=== PATIENT | male | born 1950 | race Caucasian/White ===

== ENCOUNTER 2017-09-22 11:30 | Inpatient (IN) | payer OTHER, MEDICARE ==
[~2017-09-22] VITALS: Ht 182.9 cm; Wt 88.4 kg
[2017-09-22] VITALS (22 sets, daily range): BP systolic 95–125; BP diastolic 53–76; PULSE 70–100; RESP 15–87; Ht 182.9 cm; Wt 88.4 kg
[~2017-09-22 11:30] MED LIST: ONDANSETRON 4 MG INJ ONE
[2017-09-22] MEDS ORDERED: FINA5TAB4 PO (11:54)
[2017-09-22] MEDS ORDERED: CRES10 PO (11:55)
[2017-09-22] MEDS ORDERED: ALFU10TA28 PO (11:55)
[2017-09-22] MEDS ORDERED: METO-448 PO (11:56)
[2017-09-22] MEDS ORDERED: DULO60CA59 PO (11:57)
[2017-09-22] MEDS ORDERED: LOSA1TAB25 PO (11:57)
[2017-09-22] MEDS ORDERED: CELE200C PO (11:57)
[2017-09-22] MEDS ORDERED: METF1000 PO (11:58)
[2017-09-22] MEDS ORDERED: ZOLP10TA PO (11:58)
[2017-09-22] MEDS ORDERED: HYDR-902 PO (11:59)
[2017-09-22] MEDS ORDERED: VANCOMYCIN 1 GM (PMX) 250 ML IVPB SCH ×2 (12:30→13:30)
[2017-09-22] MEDS ORDERED: LACTATED RINGER'S 1,000 ML IV* SCH (12:30)
[2017-09-22] MEDS ORDERED: 1/2 NS + KCL 20 MEQ 1,000 ML IV SCH (13:22)
--- NOTE | 2017-09-22 13:22 | HPN ---
Date/Time of Note Date/Time of Note DATE: 09/22/17 TIME: 13:22 Interval H&P Admission Note Pt. seen H&P reviewed: No system changes SIMRAN PARK PA-C Sep 22, 2017 13:22
[2017-09-22] MEDS ORDERED: AL HYDROX/MG HYDROX/SIMETH 30 ML CUP PO PRN (13:30)
[2017-09-22] MEDS ORDERED: CEPASTAT LOZENGE MT PRN (13:30)
[2017-09-22] MEDS ORDERED: BISACODYL 10 MG SUPP PR PRN (13:30)
[2017-09-22] MEDS ORDERED: HYDROmorphONE 0.5 MG/0.5 ML SYG IV PRN (13:30)
[2017-09-22] MEDS ORDERED: CYCLOBENZAPRINE 10 MG TAB PO PRN (13:30)
[2017-09-22] MEDS ORDERED: ONDANSETRON 4 MG INJ IV PRN ×2 (13:30→14:00)
[2017-09-22] MEDS ORDERED: NALOXONE (0.4 MG/ML) INJ IV PRN (13:30)
[2017-09-22] MEDS ORDERED: ZOLPIDEM 5 MG TAB PO PRN (13:30)
[2017-09-22] MEDS ORDERED: HYDROCODONE/APAP (10/325) TAB PO PRN (13:30)
[2017-09-22] MEDS ORDERED: ACETAMINOPHEN 325 MG TAB PO PRN (13:30)
[2017-09-22] MEDS ORDERED: DIPHENHYDRAMINE 50 MG INJ IV PRN ×2 (13:30→14:00)
[2017-09-22] MEDS ORDERED: ROCURONIUM 50 MG INJ ONE (13:49)
[2017-09-22] MEDS ORDERED: PROPOFOL 20 ML ONE (13:49)
[2017-09-22] MEDS ORDERED: LIDOCAINE 2% (SDV) 5 ML INJ ONE (13:49)
[2017-09-22] MEDS ORDERED: THROMBIN 5000 UNIT VIAL ONE (13:50)
[2017-09-22] MEDS ORDERED: SURGIFOAM POWDER 1 GM KIT ONE (13:50)
[2017-09-22] MEDS ORDERED: CEFAZOLIN 1 GM INJ ONE (13:50)
[2017-09-22] MEDS ORDERED: CA CHLORIDE 10% 10 ML SYRINGE ONE (13:51)
[2017-09-22] MEDS ORDERED: HEPARIN 1000 UNITS/ML 10 ML INJ ONE (13:51)
[2017-09-22] MEDS ORDERED: BUPIVACAINE 0.25% (MPF) 30 ML INJ ONE (13:51)
[2017-09-22] MEDS ORDERED: BUPIVACAINE 0.25%/EPI (SDV) 30 ML INJ ONE (13:51)
[2017-09-22] MEDS ORDERED: FENTAnyl 50 MCG/ML VIAL ONE ×2 (13:51→17:56)
[2017-09-22] MEDS ORDERED: hydrALAzine 20 MG INJ IV PRN (14:00)
[2017-09-22] MEDS ORDERED: HYDROmorphONE (0.2 MG/ML) 10ML SYG IV PRN ×3 (14:00)
[2017-09-22] MEDS ORDERED: EPHEDrine SULFATE 50 MG/5 ML SYG IV PRN (14:00)
[2017-09-22] MEDS ORDERED: KETOROLAC 30 MG INJ IV PRN (14:00)
[2017-09-22] MEDS ORDERED: LABETALOL HCL 20MG INJ IV PRN (14:00)
[2017-09-22] MEDS ORDERED: ALBUTEROL 0.083% (NEB) 2.5 MG/3 ML AMP HHN PRN (14:00)
[2017-09-22] MEDS ORDERED: FENTAnyl 50 MCG/ML VIAL IV PRN ×3 (14:00)
[2017-09-22] MEDS ORDERED: MEPERIDINE 25 MG INJ IV PRN (14:00)
[2017-09-22] MEDS ORDERED: METOCLOPRAMIDE 10 MG INJ IV PRN (14:00)
[2017-09-22] MEDS ORDERED: OXYCODONE/ACETAMINOPHEN (5/325) TAB PO PRN ×2 (14:00)
[2017-09-22] MEDS ORDERED: morphine 10 MG INJ ONE (14:32)
[2017-09-22] MEDS ORDERED: DEXAMETHASONE 4 MG/ML 1 ML INJ ONE (16:03)
[2017-09-22] MEDS ORDERED: KETOROLAC 30 MG INJ ONE (18:26)
--- NOTE | 2017-09-22 18:37 | SIPON ---
Date/Time of Note Date/Time of Note DATE: 09/22/17 TIME: 18:37 Operative Report Preoperative Diagnosis L4-5 disc disease and stenosis Postoperative Diagnosis L4-5 disc disease and stenosis Operation/Procedure Performed L4-5 fusion Surgeon see signature line fire control assistant Nithya VALE Anesthesia: general Estimated blood loss: 250 - 300 ml's Transfusion Required none Specimen Disc Grafts/Implants Screws and cage Complications none MIKE MONROE MD Sep 22, 2017 18:37
[2017-09-22] MEDS: HYDROmorphONE 0.2 MG/ML PCA IV SCH (18:49)
--- NOTE | 2017-09-22 19:57 | OPR ---
DATE OF OPERATION: 09/22/2017 PREOPERATIVE DIAGNOSES: Degenerative scoliosis with L4-L5 disk disease and stenosis and radiculopat hy. POSTOPERATIVE DIAGNOSIS: Degenerative scoliosis with L4-L5 disk disease and stenosis and radiculopa thy. OPERATION PERFORMED: 1. Bilateral pedicle screw placement at L4 and L5 bilaterally. 2. Transforaminal lumbar interbody fusion at L4-L5. 3. Placement of intervertebral biomechanical device at L4-L5. 4. Posterolateral fusion at L4-L5. 5. Left L4 extraforaminal decompression. 6. Iliac crest bone marrow aspiration. 7. Use of allograft. 8. Use of autograft. 9. Use of C-arm fluoroscopy with interpretation without radiologist present. 10. Use of operative microscope. 11. Intraoperative neuromonitoring (3.5 hours). 12. Epidural injection via catheter. IMPLANTS: 1. Gabriel 6.5 x 50 mm screws at L4 and 6.5 x 45 mm screws at L5 bilaterally. 2. [place] Nicole 11 mm lordotic cage. 3. Fibergraft matrix and putty. SURGEON: Corby Shin MD. GAS DISPENSER: Nithya Ramires PA-C. NEED FOR FLOUR BLENDER: During this spinal surgical procedure, my retail administrative assistant was used to retrac t and protect the spinal nerves and dural sac. My retail administrative assistant also employed the suction catheters to evacuate blood from the surgical field to improve visualization of the neural structures. The lokesh tant was medically necessary to facilitate the completion of the surgery in a safe and expeditious felicita. State of [place] regulations, as well as hospital bylaws, preclude the use of non-license d health care personnel, such as operating room technicians, to perform these functions. FINDINGS: Neuromonitoring at the start of the case revealed left L4 amplitude down 30%, left L5 amp litude down 30%. At the end of the case, nerve signals returned to normal. Patient had degenerativ e scoliosis with significant left-sided disk collapse at L4-L5 with foraminal stenosis. ESTIMATED BLOOD LOSS: 300 mL with blood return via Cell Saver. DRAINS: One. SPECIMENS: L4-5 disk. COMPLICATIONS OF PROCEDURES: None. ANESTHESIOLOGIST: Dr. Grubbs. TYPE OF ANESTHESIA: General. INDICATIONS FOR PROCEDURE: This 67-year-old gentleman has left lumbosacral radiculopathy and weakne ss in the setting of degenerative scoliosis and stenosis. He failed nonoperative measures, therefor e, I recommended proceeding with the above-mentioned surgery. Preoperatively, we discussed the risk s, benefits, and alternatives. He understood and wished to proceed. DESCRIPTION OF PROCEDURE IN DETAIL: The patient was identified in the preoperative holding area, anastacio quezada, taken to the operating room, where he was successfully placed under general an esthesia. Neuromonitoring leads were placed, sequential compressive devices were applied. Orozco ca theter was introduced. Neuromonitoring was utilized during the procedure for 3.5 hours to include S SEP, EMG and MEP. The start time was 3:00 p.m., closure time was 6:30 p.m. The patient was placed in downward turned prone position over a Adolfo frame. All bony prominences were well padded. Prep ped and draped in the usual fashion. I injected the incision sites with Marcaine and epinephrine. Incision was made over the L4-L5 level. Incision was taken down to dorsal fascia, which was incised with Bovie cautery. Due to the degenerative scoliosis and deformity with the overgrowth of the fac ets, there are no clear landmarks for the facet joints, particularly on the left side, worse at the L5 pedicle. As such, it took an extra hour in order for skeletonization of the bony elements and pl acement of the screws. Once I had exposed the spine out to the transverse processes, I took imaging studies to confirm the correct levels. I next performed a left iliac crest bone marrow aspiration. I then placed pedicle screws bilaterally at L4 and L5. Once the screws were in place, I stimulate d the screws and there was no evidence of cortical breach. These were modular screws and the heads were put on. Next, microscope was brought in and a left-sided decompression was performed at the L4 -5 level. The patient also had extraforaminal stenosis and therefore an extraforaminal decompressio n was performed on the left at L4 in addition to the L5 decompression. This was done in order to al leviate the stenosis. Once the decompression was completed, my retail administrative assistant retracted neural elements medially. A thorough radical diskectomy was performed. Endplates were prepared. Once this was don e, I placed various trials and chose the appropriate graft height. I then took the PEEK Nicole cage, which I deployed into the disk space to complete the transforaminal lumbar interbody fusion. Once I placed the intervertebral biomechanical device, I backfilled the cage with the allograft. Once thi s was done, I was happy with placement of the hardware. I irrigated the wound. I then placed the a ppropriate rods bilaterally with compression across the set screws with final tightening of the set screws. I then removed the director athletic tabs. I then irrigated the wound. I prepared the posterolater al gutter on the right side as well as the lamina on the right side and performed a posterolateral f usion at L4-5, utilizing the allograft and the autograft from the local lamina. At this point, I to ok final AP and lateral images and I was happy with placement of the hardware and alignment of the s pine. Through the epidural catheter, I injected 100 mcg of fentanyl mixed with 2 mL of Marcaine 0.2 5% preservative-free, and the catheter was pulled. I injected PPP and thrombin over the dura for he mostatic purposes. I then placed a deep subfascial drain and closed the fascia with #1 Stratafix conte ture. Microscope was taken off the field. I closed subcutaneous tissue with 2-0 Vicryl stitch. A 4-0 Monocryl closure was then performed. Dermabond and sterile dressings were then applied. The pa tient was then awakened from anesthesia and taken to recovery in stable condition. Lap, sponge, and instrument counts were correct x2. There were no apparent complications during the procedure. The patient will be admitted to the [facility] for routine postoperative care to include pain c ontrol, neurovascular checks, antibiotics, and physical therapy. Dictated By: CORBY ROTH/LORENZO Conf#: [id number] DID#: [id number]
[2017-09-22] MEDS: DOCUSATE SODIUM 100 MG CAP PO SCH (20:46)
[2017-09-22] MEDS: VANCOMYCIN 1 GM (PMX) 250 ML IVPB SCH (20:46)
[2017-09-22] MEDS ORDERED: GLUCOSE GEL 15 GRAM TUBE PO PRN ×2 (22:30)
[2017-09-22] MEDS ORDERED: DEXTROSE 50% 50 ML SYRINGE IV PRN ×2 (22:30)
[2017-09-22] MEDS ORDERED: GLUCAGON 1 MG INJ IM PRN (22:30)
[2017-09-22] MEDS ORDERED: GLUCOSE GEL 15 GRAM TUBE BUCCAL PRN (22:30)
[2017-09-22] MEDS: SOD CHLORIDE 0.9% 1,000 ML IV SCH (23:00)
[2017-09-22] MEDS: METOPROLOL 25 MG TAB PO SCH (23:00)
[2017-09-22] MEDS: ALFUZOSIN (SR) 10 MG TAB PO SCH (23:30)
[2017-09-22] MEDS: ATORVASTATIN 40 MG TAB PO SCH (23:52)
[2017-09-23 00:01] VITALS: BP 102/57; PULSE 95; RESP 18
[2017-09-23] MEDS: ACCU-CHEK XX SCH (02:00)
[2017-09-23 02:09] VITALS: BP 116/61; RESP 18
[2017-09-23] MEDS: HYDROmorphONE 0.2 MG/ML PCA IV SCH ×3 (04:36→19:52)
[2017-09-23 05:31] LABS: BASOPHILS % 0.2 % (0.0-2.0); HEMATOCRIT 26.7 % (42.0-52.0); HEMOGLOBIN 9.1 g/dl (14.0-18.0); LYMPHOCYTES # 1.3 10^3/ul (0.8-2.9); LYMPHOCYTES % 19.2 % (15.0-51.0); MEAN CORPUSCULAR HEMOGLOBIN 31.2 pg (29.0-33.0); MEAN CORPUSCULAR HGB CONC 34.1 g/dl (32.0-37.0); MEAN CORPUSCULAR VOLUME 91.4 fl (82.0-101.0); MEAN PLATELET VOLUME 9.5 fl (7.4-10.4); MONOCYTE # 0.6 10^3/ul (0.3-0.9); MONOCYTES % 8.4 % (0.0-11.0); NEUTROPHIL # 4.7 10^3/ul (1.6-7.5); NEUTROPHILS % 71.7 % (39.0-77.0); PLATELET COUNT 163 10^3/UL (140-415); RED BLOOD COUNT 2.92 10^6/ul (4.70-6.10); RED CELL DISTRIBUTION WIDTH 12.5 % (11.5-14.5); WHITE BLOOD COUNT 6.6 10^3/ul (4.8-10.8)
[2017-09-23 06:31] LABS: CALCIUM 8.2 mg/dl (8.4-10.2); CREATININE 0.69 mg/dl (0.61-1.24); MAGNESIUM 1.4 mg/dl (1.7-2.5); POTASSIUM 4.5 mmol/L (3.5-5.1)
[2017-09-23 07:31] VITALS: BP 111/70; RESP 20
[2017-09-23 07:36] VITALS: BP 139/63; RESP 20
[2017-09-23] MEDS ORDERED: MAGNESIUM SULFATE 3 GM in DEXTROSE 5% 100 ML IVPB ONE (08:00)
--- NOTE | 2017-09-23 08:32 | CONS ---
DATE OF ADMISSION: 09/22/2017 DATE OF CONSULTATION: 09/23/2017 Thank you very much for allowing me to evaluate the above patient who just underwent lumbar back aly allan yesterday. HISTORICAL EVENTS: As you well know, this patient has had a longstanding history of low back pain a nd radicular left leg pain with weakness involving the same. Because of persistence of his symptoms , he elected to proceed with surgery. Postoperatively, he notes no back pain and the numbness invol ving his left leg is markedly improved. He denies cough, wheezing, shortness of breath, nausea, vom iting, abdominal or chest pain. PAST MEDICAL HISTORY: Includes: 1. Hypertension. 2. Hyperlipidemia. 3. History of kidney stone. 4. History of vertebral compression fracture. 5. Diabetes mellitus. 6. Prior history of hepatitis C. 7. Undergoing cardiac evaluation preoperatively -- myocardial a nuclear study in 08/21/2017 year re vealed no ischemia. MEDICATIONS PRIOR TO ADMISSION: Include: (Not well outlined in internal medicine preoperative evaluation, doses to be confirmed). 1. Losartan. 2. Hydrochlorothiazide. 3. Crestor. 4. Finasteride. 5. Duloxetine. 6. Metoprolol. 7. Alfuzosin. 8. Vicodin. 9. Ambien. 10. Vitamins. 11. Metformin ALLERGIES: PENICILLIN. PAST SURGICAL HISTORY: Include: 1. Right knee replacement. 2. Right knee cyst removal. 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 PHYSICAL EXAMINATION: GENERAL: [place] male in no acute distress. VITAL SIGNS: BP 128/80, pulse 70, respirations are 20, and he was afebrile. EYES: Extraocular muscles were full. NOSE, MOUTH, AND THROAT: Normal. NECK: Supple. There was no jugular venous distention, thyroid enlargement or adenopathy. LUNGS: Clear. HEART: Rhythm regular, no murmur. No third or fourth sound. ABDOMEN: Nontender. Liver and spleen were not palpable. No masses or tenderness were noted. EXTREMITIES: No edema, no calf tenderness. NEUROLOGIC: Included hip flexion bilaterally that was normal, dorsiflexion of his feet that were no rmal bilaterally. IMPRESSION: 1. Stable postop lumbar laminectomy. 2. History of diabetes. We will monitor sugars and give short-acting insulin prior to meals. 3. Hypertension. Blood pressure meds was continued, but will delete hydrochlorothiazide. 4. Hyperlipidemia to continue statin. 5. We will evaluate daily for signs and symptoms of thromboembolic disease. Dictated By: CHRISTO WARNER MD MR/NTS Conf#: [id number] DID#: [id number] CC: MIKE MONROE MD;*EndCC*
--- NOTE | 2017-09-23 08:50 | RADRPT ---
PROCEDURE: Intraoperative imaging of the lower lumbar spine with fluoroscopy. CLINICAL INDICATION: Back pain. Intraoperative. TECHNIQUE: Images of the lower lumbar spine were obtained in the operating room with an image inte nsifier. No radiologist was in attendance. Fluoroscopy time is 87 seconds and 17 images were obtai olga. COMPARISON: No prior study is available for comparison. FINDINGS: Images demonstrate fusion with pedicle screws and connecting rods at L4-5. An intervertebral cage is also present at L4-5. IMPRESSION: 1. Intraoperative imaging of the lumbar spine. RPTAT: QQ .Adolfo Pleitez MD, MD Date Time Electronically viewed and signed by .Adolfo Pleitez MD, on 09/23/2017 08:50 .R/
[2017-09-23] MEDS: DOCUSATE SODIUM 100 MG CAP PO SCH ×2 (09:12→20:58)
[2017-09-23] MEDS: FINASTERIDE 5 MG TAB PO SCH (09:12)
[2017-09-23] MEDS: metFORMIN 500 MG TAB PO SCH ×2 (09:13→17:10)
[2017-09-23] MEDS: DULOXETINE 30 MG CAP DR PO SCH (09:14)
[2017-09-23] MEDS: VANCOMYCIN 1 GM (PMX) 250 ML IVPB SCH (09:15)
[2017-09-23] MEDS: INSULIN ASPART [NOVOLOG] 3 ML PEN SC SCH ×3 (09:15→17:11)
[2017-09-23] MEDS: LOSARTAN 50 MG TAB PO SCH (09:39)
[2017-09-23] MEDS: METOPROLOL 25 MG TAB PO SCH ×2 (09:40→21:00)
[2017-09-23] MEDS: SOD CHLORIDE 0.9% 1,000 ML IV SCH ×4 (09:41→23:31)
--- NOTE | 2017-09-23 12:07 | PN ---
Date/Time of Note Date/Time of Note DATE: 09/23/17 TIME: 12:06 Assessment/Plan Lines/Catheters IV Catheter Type (from Nrsg): Peripheral IV Orozco in Place (from Nrsg): Yes Assessment/Plan Assessment/Plan Status post lumbar surgery fusion. Patient is doing very well. Continue routine care Subjective 24 Hr Interval Summary Patient's left leg is significantly improved. Exam/Review of Systems Vital Signs Vitals Vital Signs Date Time Temp Pulse Resp B/P Pulse Ox O2 Delivery O2 Flow Rate FiO2 09/23/17 07:36 98.7 88 20 139/63 97 09/23/17 00:01 Room Air Intake and Output 09/22/17 09/22/17 09/23/17 15:00 23:00 07:00 Intake Total 2575 ml 1000 ml Output Total 850 ml 1940 ml Balance 1725 ml -940 ml Exam Free Text/Dictation Minimal left leg weakness, improved from preop Results Result Diagram: 09/23/17 0438 09/23/17 0438 MIKE MONROE MD Sep 23, 2017 12:07
[2017-09-23 13:47] LABS: BASOPHILS % 0.2 % (0.0-2.0); EOSINOPHILS % 0.4 % (0.0-7.0); HEMATOCRIT 26.7 % (42.0-52.0); HEMOGLOBIN 9.3 g/dl (14.0-18.0); LYMPHOCYTES # 2.8 10^3/ul (0.8-2.9); LYMPHOCYTES % 28.2 % (15.0-51.0); MEAN CORPUSCULAR HEMOGLOBIN 31.4 pg (29.0-33.0); MEAN CORPUSCULAR HGB CONC 34.8 g/dl (32.0-37.0); MEAN CORPUSCULAR VOLUME 90.2 fl (82.0-101.0); MEAN PLATELET VOLUME 9.1 fl (7.4-10.4); MONOCYTE # 0.8 10^3/ul (0.3-0.9); MONOCYTES % 7.7 % (0.0-11.0); NEUTROPHIL # 6.3 10^3/ul (1.6-7.5); PLATELET COUNT 162 10^3/UL (140-415); RED BLOOD COUNT 2.96 10^6/ul (4.70-6.10); RED CELL DISTRIBUTION WIDTH 12.6 % (11.5-14.5)
[2017-09-23 14:20] VITALS: BP 104/63; RESP 20
[2017-09-23 20:16] VITALS: BP 118/70; RESP 20
[2017-09-23] MEDS: ALFUZOSIN (SR) 10 MG TAB PO SCH (20:58)
[2017-09-23] MEDS: ATORVASTATIN 40 MG TAB PO SCH (20:58)
[2017-09-24 02:00] VITALS: BP 112/64; RESP 19
[2017-09-24] MEDS: ACCU-CHEK XX SCH (02:00)
[2017-09-24 05:20] LABS: BASOPHILS % 0.3 % (0.0-2.0); EOSINOPHILS # 0.1 10^3/ul (0.0-0.5); EOSINOPHILS % 2.3 % (0.0-7.0); HEMATOCRIT 26.5 % (42.0-52.0); HEMOGLOBIN 9.1 g/dl (14.0-18.0); LYMPHOCYTES # 2.1 10^3/ul (0.8-2.9); LYMPHOCYTES % 34.3 % (15.0-51.0); MEAN CORPUSCULAR HEMOGLOBIN 31.5 pg (29.0-33.0); MEAN CORPUSCULAR HGB CONC 34.3 g/dl (32.0-37.0); MEAN CORPUSCULAR VOLUME 91.7 fl (82.0-101.0); MEAN PLATELET VOLUME 9.1 fl (7.4-10.4); MONOCYTE # 0.5 10^3/ul (0.3-0.9); MONOCYTES % 8.1 % (0.0-11.0); NEUTROPHIL # 3.4 10^3/ul (1.6-7.5); NEUTROPHILS % 54.5 % (39.0-77.0); PLATELET COUNT 150 10^3/UL (140-415); RED BLOOD COUNT 2.89 10^6/ul (4.70-6.10); RED CELL DISTRIBUTION WIDTH 12.4 % (11.5-14.5); WHITE BLOOD COUNT 6.2 10^3/ul (4.8-10.8)
[2017-09-24 05:53] LABS: IRON 17 ug/dl (35-150)
[2017-09-24 05:55] LABS: CALCIUM 8.3 mg/dl (8.4-10.2); CREATININE 0.73 mg/dl (0.61-1.24); MAGNESIUM 1.7 mg/dl (1.7-2.5); POTASSIUM 4.5 mmol/L (3.5-5.1)
[2017-09-24 06:03] LABS: TOTAL IRON BINDING CAPACITY 280 ug/dl (241-421)
--- NOTE | 2017-09-24 07:37 | CONS ---
Date/Time of Note Date/Time of Note DATE: 09/24/17 TIME: 07:34 Assessment/Plan Assessment/Plan Additional Assessment/Plan 1. Stable postop lumbar laminectomy. 2. History of diabetes, sugars are acceptable 3. Hypertension, contolled 4. Hyperlipidemia, statin was continued Consultation Date/Type/Reason Admit Date/Time Sep 22, 2017 at 11:30 Initial Consult Date Detailed Summary Respiratory: No cough, No shortness of breath Cardiovascular: No chest pain, No lightheadedness Gastrointestinal: no complaints Genitourinary: other (davis in place) Musculoskeletal: back pain (moderate) Exam/Review of Systems Vital Signs Vitals Vital Signs Date Time Temp Pulse Resp B/P Pulse Ox O2 Delivery O2 Flow Rate FiO2 09/24/17 05:16 18 09/24/17 02:00 98.7 71 112/64 96 09/23/17 00:01 Room Air Intake and Output 09/23/17 09/23/17 09/24/17 15:00 23:00 07:00 Intake Total 656 ml 2520 ml 1880 ml Output Total 3350 ml 3200 ml Balance 656 ml -830 ml -1320 ml Exam Neck: No jvd Respiratory: clear to auscultation Cardiovascular: regular rate and rhythm Extremities: No edema (and no calf tend bilat) Results Result Diagram: 09/24/17 0450 09/24/17 0450 Results 24 hrs Laboratory Tests Test 09/23/17 09:10 09/23/17 12:37 09/23/17 13:34 09/23/17 17:08 Bedside Glucose 191 178 141 White Blood Count 10.0 # Red Blood Count 2.96 L Hemoglobin 9.3 L Hematocrit 26.7 L Mean Corpuscular Volume 90.2 Mean Corpuscular Hemoglobin 31.4 Mean Corpuscular Hemoglobin Concent 34.8 Red Cell Distribution Width 12.6 Platelet Count 162 Mean Platelet Volume 9.1 Neutrophils % 63.0 Lymphocytes % 28.2 Monocytes % 7.7 Eosinophils % 0.4 Basophils % 0.2 Nucleated Red Blood Cells % 0.0 Neutrophils # 6.3 Lymphocytes # 2.8 Monocytes # 0.8 Eosinophils # 0.0 Basophils # 0.0 Nucleated Red Blood Cells # 0.0 Test 09/24/17 04:50 White Blood Count 6.2 # Red Blood Count 2.89 L Hemoglobin 9.1 L Hematocrit 26.5 L Mean Corpuscular Volume 91.7 Mean Corpuscular Hemoglobin 31.5 Mean Corpuscular Hemoglobin Concent 34.3 Red Cell Distribution Width 12.4 Platelet Count 150 Mean Platelet Volume 9.1 Neutrophils % 54.5 Lymphocytes % 34.3 Monocytes % 8.1 Eosinophils % 2.3 Basophils % 0.3 Nucleated Red Blood Cells % 0.0 Neutrophils # 3.4 Lymphocytes # 2.1 Monocytes # 0.5 Eosinophils # 0.1 Basophils # 0.0 Nucleated Red Blood Cells # 0.0 Sodium Level 138 Potassium Level 4.5 Chloride Level 105 Carbon Dioxide Level 27 Anion Gap 11 Blood Urea Nitrogen 15 Creatinine 0.73 Glucose Level 147 # Calcium Level 8.3 L Phosphorus Level 3.4 Magnesium Level 1.7 Iron Level 17 L Total Iron Binding Capacity 280 Percent Iron Saturation 6 L Medications Medications Current Medications Acetaminophen/ Hydrocodone Bitart ([place] (10/325)) 1 tab Q4H PRN PO PAIN LEVEL 1-5; Start 09/22/17 at 13:30 Acetaminophen/ Hydrocodone Bitart ([place] (10/325)) 2 tab Q4H PRN PO PAIN LEVEL 6-10; Start 09/22/17 at 13:30 Hydromorphone HCl (Dilaudid) 0.2 mg Q1H PRN IV BREAKTHROUGH PAIN; Start at 13:30 Ondansetron HCl (Zofran Inj) 4 mg Q6H PRN IV NAUSEA AND/OR VOMITING; Start at 13:30 Bisacodyl (Dulcolax Supp) 10 mg DAILY PRN [place] CONSTIPATION; Start 09/22/17 at 13:30 Docusate Sodium (Colace) 100 mg BID PO Last administered on 09/23/17t 20:58; Admin Dose 100 MG; Start 09/22/17 at 21:00 Al Hydrox/Mg Hydrox/Simethicone (Mag-Al Plus) 15 ml Q6H PRN PO CONSTIPATION/ DYSPEPSIA; Start 09/22/17 at 13:30 Acetaminophen (Tylenol Tab) 650 mg Q4H PRN PO ROCHA OR TEMP GREATER THAN 101.3F; Start 09/22/17 at 13:30 Cyclobenzaprine HCl (Flexeril) 10 mg TID PRN PO MUSCLE SPASMS; Start 09/22/17 at 13:30 Phenol (Cepastat Lozenge) 1 lozenge PRN PRN MT SORE THROAT; Start 09/22/17 at 13:30 Diphenhydramine HCl (Benadryl) 25 mg Q6H PRN IV ITCHING; Start 09/22/17 at 13: 30 Naloxone HCl (Narcan) 0.2 mg Q2M PRN IV RR 8 BREATHS/MIN OR LESS; Start at 13:30 Hydromorphone HCl (Dilaudid ASSISTANT PRESS OPERATOR OFFSET) ASSISTANT PRESS OPERATOR OFFSET to be started in PACU Q4PCA IV Last administered on 09/23/17 19:52; Admin Dose 6 MG; Start 09/22/17 at 13:30 Miscellaneous Information 1. Hold ASSISTANT PRESS OPERATOR OFFSET at 1,000... ASSISTANT PRESS OPERATOR OFFSET IV ; Start 09/22/17 at 13 :30 Alfuzosin HCl (Uroxatral) 10 mg QHS PO Last administered on 09/23/17 20:58; Admin Dose 10 MG; Start 09/22/17 at 23:30 Duloxetine HCl (Cymbalta) 60 mg DAILY PO Last administered on 09/23/17 09:14 ; Admin Dose 60 MG; Start 09/23/17 at 09:00 Finasteride (Proscar) 5 mg DAILY PO Last administered on 09/23/17 09:12; Admin Dose 5 MG; Start 09/23/17 at 09:00 Metoprolol Tartrate (Lopressor) 25 mg BID PO Last administered on 09/23/17 09 :40; Admin Dose 25 MG; Start 09/22/17 at 23:00 Atorvastatin Calcium 40 mg 40 mg DAILY@21 PO Last administered on 09/23/17 20 :58; Admin Dose 40 MG; Start 09/22/17 at 23:00 Sodium Chloride (NS) 1,000 ml @ 80 mls/hr [id number] IV ; Start 09/22/17 at 22:00 Diagnostic Test (Pha) (Accu-Chek) 1 ea 02 XX ; Start 09/23/17 at 02:00 Miscellaneous Information 1 ea NOTE XX ; Start 09/22/17 at 22:30 Glucose (Glutose) 15 gm Q15M PRN PO DECREASED GLUCOSE; Start 09/22/17 at 22:30 Glucose (Glutose) 22.5 gm Q15M PRN PO DECREASED GLUCOSE; Start 09/22/17 at 22: 30 Dextrose (D50w Syringe) 25 ml Q15M PRN IV DECREASED GLUCOSE; Start 09/22/17 at 22:30 Dextrose (D50w Syringe) 50 ml Q15M PRN IV DECREASED GLUCOSE; Start 09/22/17 at 22:30 Glucagon (Glucagen) 1 mg Q15M PRN IM DECREASED GLUCOSE; Start 09/22/17 at 22: 30 Glucose (Glutose) 15 gm Q15M PRN BUCCAL DECREASED GLUCOSE; Start 09/22/17 at 22:30 Losartan Potassium 50 mg 50 mg DAILY PO Last administered on 09/23/17 09:39; Admin Dose 50 MG; Start 09/23/17 at 09:00 Sodium Chloride (NS) 1,000 ml @ 80 mls/hr [id number] IV Last administered on 23:31; Admin Dose 80 MLS/HR; Start 09/23/17 at 08:00 CHRISTO WARNER MD Sep 24, 2017 07:37
--- NOTE | 2017-09-24 07:53 | PN ---
Date/Time of Note Date/Time of Note DATE: 09/24/17 TIME: 07:52 Assessment/Plan Lines/Catheters IV Catheter Type (from Nrsg): Peripheral IV Orozco in Place (from Nrsg): Yes Assessment/Plan Assessment/Plan Status post lumbar fusion DC PACK OPERATOR and Orozco Continue Hemovac as output is high. Iron deficiency anemia-we will replete iron Subjective 24 Hr Interval Summary Complains of back pain Exam/Review of Systems Vital Signs Vitals Vital Signs Date Time Temp Pulse Resp B/P Pulse Ox O2 Delivery O2 Flow Rate FiO2 09/24/17 05:16 18 09/24/17 02:00 98.7 71 112/64 96 09/23/17 00:01 Room Air Intake and Output 09/23/17 09/23/17 09/24/17 15:00 23:00 07:00 Intake Total 656 ml 2520 ml 1880 ml Output Total 3350 ml 3200 ml Balance 656 ml -830 ml -1320 ml Exam Free Text/Dictation Improved left leg weakness Results Result Diagram: 09/24/17 0450 09/24/17 0450 MIKE MONROE MD Sep 24, 2017 07:53
[2017-09-24] MEDS: HYDROmorphONE 0.2 MG/ML PCA IV SCH (07:54)
[2017-09-24] MEDS ORDERED: MAGNESIUM SULFATE 2 GM/50 ML 50 ML IVPB ONE (08:30)
[2017-09-24] MEDS: FINASTERIDE 5 MG TAB PO SCH (08:45)
[2017-09-24] MEDS: DOCUSATE SODIUM 100 MG CAP PO SCH ×2 (08:45→20:47)
[2017-09-24] MEDS: DULOXETINE 30 MG CAP DR PO SCH (08:45)
[2017-09-24 08:47] VITALS: BP 119/75; RESP 19
[2017-09-24] MEDS: LOSARTAN 50 MG TAB PO SCH (08:47)
[2017-09-24] MEDS: METOPROLOL 25 MG TAB PO SCH ×2 (08:55→20:48)
[2017-09-24] MEDS: SOD CHLORIDE 0.9% 1,000 ML IV SCH ×3 (09:00→21:30)
[2017-09-24] MEDS: metFORMIN 500 MG TAB PO SCH ×2 (09:23→17:50)
[2017-09-24] MEDS: INSULIN ASPART [NOVOLOG] 3 ML PEN SC SCH ×3 (09:28→17:25)
[2017-09-24] MEDS ORDERED: HYDROmorphONE 2 MG TAB PO PRN (11:42)
[2017-09-24] MEDS: SOD FERRIC GLUC COMPLX 125 MG in SOD CHLORIDE 0.9% 100 ML IVPB SCH (12:02)
[2017-09-24 15:30] VITALS: BP 128/79; RESP 20
[2017-09-24 19:48] VITALS: BP 136/78; RESP 18
[2017-09-24] MEDS: ATORVASTATIN 40 MG TAB PO SCH (20:48)
[2017-09-24] MEDS: ALFUZOSIN (SR) 10 MG TAB PO SCH (20:48)
[2017-09-24] MEDS: HYDROCODONE/APAP (10/325) TAB PO PRN (21:26)
[2017-09-24 23:37] VITALS: BP 129/80; RESP 18
[2017-09-25] MEDS: ACCU-CHEK XX SCH (02:00)
[2017-09-25 02:35] VITALS: BP 122/74; RESP 18
[2017-09-25 05:23] LABS: BASOPHILS % 0.3 % (0.0-2.0); EOSINOPHILS # 0.1 10^3/ul (0.0-0.5); EOSINOPHILS % 2.2 % (0.0-7.0); HEMATOCRIT 26.7 % (42.0-52.0); HEMOGLOBIN 9.2 g/dl (14.0-18.0); LYMPHOCYTES # 1.5 10^3/ul (0.8-2.9); LYMPHOCYTES % 24.7 % (15.0-51.0); MEAN CORPUSCULAR HEMOGLOBIN 31.7 pg (29.0-33.0); MEAN CORPUSCULAR HGB CONC 34.5 g/dl (32.0-37.0); MEAN CORPUSCULAR VOLUME 92.1 fl (82.0-101.0); MEAN PLATELET VOLUME 9.1 fl (7.4-10.4); MONOCYTE # 0.6 10^3/ul (0.3-0.9); NEUTROPHIL # 3.7 10^3/ul (1.6-7.5); NEUTROPHILS % 62.5 % (39.0-77.0); PLATELET COUNT 148 10^3/UL (140-415); RED CELL DISTRIBUTION WIDTH 12.2 % (11.5-14.5)
[2017-09-25 05:58] LABS: CALCIUM 8.5 mg/dl (8.4-10.2); CREATININE 0.55 mg/dl (0.61-1.24); MAGNESIUM 1.8 mg/dl (1.7-2.5)
[2017-09-25] MEDS: HYDROCODONE/APAP (10/325) TAB PO PRN ×2 (07:41→14:11)
--- NOTE | 2017-09-25 08:09 | CONS ---
Date/Time of Note Date/Time of Note DATE: 09/25/17 TIME: 08:08 Assessment/Plan Assessment/Plan Additional Assessment/Plan 1. Stable postop lumbar laminectomy. 2. DM, sugars are controleld 3. Hypertension, contolled 4. Hyperlipidemia, statin was continued 5. Anemia and iron def, receiving IV iron, po iron on dc will be needed 6. Drain remains in place Consultation Date/Type/Reason Admit Date/Time Sep 22, 2017 at 11:30 Detailed Summary Respiratory: No cough, No shortness of breath Cardiovascular: No chest pain Gastrointestinal: no complaints Genitourinary: no complaints Musculoskeletal: back pain (mild-mod) Exam/Review of Systems Vital Signs Vitals Vital Signs Date Time Temp Pulse Resp B/P Pulse Ox O2 Delivery O2 Flow Rate FiO2 09/25/17 02:35 98.5 74 18 122/74 100 09/23/17 00:01 Room Air Intake and Output 09/24/17 09/24/17 09/25/17 15:00 23:00 07:00 Intake Total 360 ml 800 ml 400 ml Output Total 960 ml 1725 ml Balance 360 ml -160 ml -1325 ml Exam Neck: No jvd Respiratory: clear to auscultation Cardiovascular: regular rate and rhythm Gastrointestinal: soft Extremities: No edema (and no calf tend bilat) Results Result Diagram: 09/25/17 0449 09/25/17 0449 Results 24 hrs Laboratory Tests Test 09/24/17 08:49 09/24/17 12:36 09/24/17 17:46 09/25/17 04:49 Bedside Glucose 173 177 131 White Blood Count 6.0 Red Blood Count 2.90 L Hemoglobin 9.2 L Hematocrit 26.7 L Mean Corpuscular Volume 92.1 Mean Corpuscular Hemoglobin 31.7 Mean Corpuscular Hemoglobin Concent 34.5 Red Cell Distribution Width 12.2 Platelet Count 148 Mean Platelet Volume 9.1 Neutrophils % 62.5 Lymphocytes % 24.7 Monocytes % 10.0 Eosinophils % 2.2 Basophils % 0.3 Nucleated Red Blood Cells % 0.0 Neutrophils # 3.7 Lymphocytes # 1.5 Monocytes # 0.6 Eosinophils # 0.1 Basophils # 0.0 Nucleated Red Blood Cells # 0.0 Sodium Level 138 Potassium Level 4.0 Chloride Level 105 Carbon Dioxide Level 26 Anion Gap 11 Blood Urea Nitrogen 9 Creatinine 0.55 L Glucose Level 138 Calcium Level 8.5 Magnesium Level 1.8 Medications Medications Current Medications Acetaminophen/ Hydrocodone Bitart ([place] (10325)) 1 tab Q4H PRN PO PAIN LEVEL 1-5 Last administered on 09/25/17 07:41; Admin Dose 1 TAB; Start 09/22/17 at 13:30 Acetaminophen/ Hydrocodone Bitart ([place] (10325)) 2 tab Q4H PRN PO PAIN LEVEL 6-10 Last administered on 09/24/17 10:07; Admin Dose 2 TAB; Start 09/22/17 at 13:30 Ondansetron HCl (Zofran Inj) 4 mg Q6H PRN IV NAUSEA AND/OR VOMITING; Start at 13:30 Bisacodyl (Dulcolax Supp) 10 mg DAILY PRN [place] CONSTIPATION; Start 09/22/17 at 13:30 Docusate Sodium (Colace) 100 mg BID PO Last administered on 09/24/17 20:47; Admin Dose 100 MG; Start 09/22/17 at 21:00 Al Hydrox/Mg Hydrox/Simethicone (Mag-Al Plus) 15 ml Q6H PRN PO CONSTIPATION/ DYSPEPSIA; Start 09/22/17 at 13:30 Acetaminophen (Tylenol Tab) 650 mg Q4H PRN PO ROCHA OR TEMP GREATER THAN 101.3F; Start 09/22/17 at 13:30 Cyclobenzaprine HCl (Flexeril) 10 mg TID PRN PO MUSCLE SPASMS; Start 09/22/17 at 13:30 Phenol (Cepastat Lozenge) 1 lozenge PRN PRN MT SORE THROAT; Start 09/22/17 at 13:30 Diphenhydramine HCl (Benadryl) 25 mg Q6H PRN IV ITCHING; Start 09/22/17 at 13: 30 Naloxone HCl (Narcan) 0.2 mg Q2M PRN IV RR 8 BREATHS/MIN OR LESS; Start at 13:30 Hydromorphone HCl (Dilaudid PROJECT HIRE) PROJECT HIRE to be started in PACU Q4PCA IV Last administered on 09/24/17 07:54; Admin Dose 6 MG; Start 09/22/17 at 13:30 Miscellaneous Information 1. Hold PROJECT HIRE at 1,000... PROJECT HIRE IV ; Start 09/22/17 at 13 :30 Alfuzosin HCl (Uroxatral) 10 mg QHS PO Last administered on 09/24/17 20:48; Admin Dose 10 MG; Start 09/22/17 at 23:30 Duloxetine HCl (Cymbalta) 60 mg DAILY PO Last administered on 09/24/17 08:45 ; Admin Dose 60 MG; Start 09/23/17 at 09:00 Finasteride (Proscar) 5 mg DAILY PO Last administered on 09/24/17 08:45; Admin Dose 5 MG; Start 09/23/17 at 09:00 Metoprolol Tartrate (Lopressor) 25 mg BID PO Last administered on 09/24/17 20 :48; Admin Dose 25 MG; Start 09/22/17 at 23:00 Atorvastatin Calcium (Lipitor) 40 mg DAILY@21 PO Last administered on 20:48; Admin Dose 40 MG; Start 09/22/17 at 23:00 Diagnostic Test (Pha) (Accu-Chek) 1 ea 02 XX ; Start 09/23/17 at 02:00 Miscellaneous Information 1 ea NOTE XX ; Start 09/22/17 at 22:30 Glucose (Glutose) 15 gm Q15M PRN PO DECREASED GLUCOSE; Start 09/22/17 at 22:30 Glucose (Glutose) 22.5 gm Q15M PRN PO DECREASED GLUCOSE; Start 09/22/17 at 22: 30 Dextrose (D50w Syringe) 25 ml Q15M PRN IV DECREASED GLUCOSE; Start 09/22/17 at 22:30 Dextrose (D50w Syringe) 50 ml Q15M PRN IV DECREASED GLUCOSE; Start 09/22/17 at 22:30 Glucagon (Glucagen) 1 mg Q15M PRN IM DECREASED GLUCOSE; Start 09/22/17 at 22: 30 Glucose (Glutose) 15 gm Q15M PRN BUCCAL DECREASED GLUCOSE; Start 09/22/17 at 22:30 Losartan Potassium 50 mg 50 mg DAILY PO Last administered on 09/24/17 08:47; Admin Dose 50 MG; Start 09/23/17 at 09:00 Sodium Chloride 1,000 ml @ 80 mls/hr [id number] IV Last administered on 23:31; Admin Dose 80 MLS/HR; Start 09/23/17 at 08:00 Ferric Sodium Gluconate Complex/ Sodium Chloride (Ferrlecit/NS) 110 ml @ 110 mls/hr Q24H IVPB Last administered on 09/24/17t 12:02; Admin Dose 110 MLS/HR; Start 09/24/17 at 09:00; Stop 09/28/17 at 09:59 Hydromorphone HCl (Dilaudid) 1 mg Q1H PRN PO BREAKTHROUGH PAIN; Start at 11:42 CHRISTO WARNER MD Sep 25, 2017 08:09
[2017-09-25 08:44] VITALS: BP 117/76; RESP 18
[2017-09-25] MEDS: LOSARTAN 50 MG TAB PO SCH (08:51)
[2017-09-25] MEDS: METOPROLOL 25 MG TAB PO SCH (08:51)
[2017-09-25] MEDS: DOCUSATE SODIUM 100 MG CAP PO SCH (08:54)
[2017-09-25] MEDS: FINASTERIDE 5 MG TAB PO SCH (08:54)
[2017-09-25] MEDS: DULOXETINE 30 MG CAP DR PO SCH (08:55)
[2017-09-25] MEDS: metFORMIN 500 MG TAB PO SCH (08:55)
[2017-09-25] MEDS: INSULIN ASPART [NOVOLOG] 3 ML PEN SC SCH ×2 (08:59→11:10)
[2017-09-25] MEDS: SOD FERRIC GLUC COMPLX 125 MG in SOD CHLORIDE 0.9% 100 ML IVPB SCH (09:02)
[2017-09-25] MEDS: SOD CHLORIDE 0.9% 1,000 ML IV SCH (09:03)
--- NOTE | 2017-09-25 11:41 | DS ---
Date/Time of Note Date/Time of Note DATE: 09/25/17 TIME: 11:40 Discharge Summary Admission/Discharge Info Admit Date/Time Sep 22, 2017 at 11:30 Discharge Date/Time September 25 Discharge Diagnosis Lumbar fusion Iron deficiency anemia Procedures Lumbar fusion Hospital Course Patient [facility] after undergoing the above procedure. His postoperative course was uncomplicated. By postoperative day 3 he was deemed stable for discharge with follow-up arranged with the undersigned Home Meds Reported Medications Hydrocodone/Acetaminophen (Veyo 10-325 Tablet) 1 Each Tablet, 1 EACH PO Q4 Y for PAIN, TAB 09/22/17 Zolpidem Tartrate* (Ambien*) 10 Mg Tablet, 10 MG PO QHS Y for INSOMNIA, TAB 09/22/17 Metformin Hcl* (Metformin Hcl*) 1,000 Mg Tablet, 1000 MG PO WITH BREAKFAST DINNE , #30 TAB 09/22/17 Duloxetine Hcl* (Duloxetine Hcl*) 60 Mg Capsule.dr, 60 MG PO DAILY, #30 CAP 09/22/17 Celecoxib* (Celebrex*) 200 Mg Capsule, 200 MG PO DAILY, CAP 09/22/17 Losartan-Hydrochlorothiazide (Losartan-HCTZ) 100-25 Mg Tab, 1 TAB PO DAILY, TAB 09/22/17 Metoprolol Tartrate* (Lopressor*) 25 Mg Tab, 25 MG PO BID, #60 TAB 09/22/17 Rosuvastatin Calcium* (Crestor*) 10 Mg Tablet, 10 MG PO QHS, #30 TAB 09/22/17 Alfuzosin Hcl* (Uroxatral*) 10 Mg Tab.sr.24h, 10 MG PO DAILY, TAB.SA 09/22/17 Finasteride* (Finasteride*) 5 Mg Tablet, 5 MG PO DAILY, TAB 09/22/17 Primary Care Provider Not On Staff Doctor Pending Labs Laboratory Tests Test 09/24/17 12:36 09/24/17 17:46 09/25/17 04:49 09/25/17 08:54 Bedside Glucose 177mg/dL (70-220) 131mg/dL (70-220) 158mg/dL (70-220) White Blood Count 6.010^3/ul (4.8-10.8) Red Blood Count 2.9010^6/ul (4.70-6.10) Hemoglobin 9.2g/dl (14.0-18.0) Hematocrit 26.7% (42.0-52.0) Mean Corpuscular Volume 92.1fl (82.0-101.0) Mean Corpuscular Hemoglobin 31.7pg (29.0-33.0) Mean Corpuscular Hemoglobin Concent 34.5g/dl (32.0-37.0) Red Cell Distribution Width 12.2% (11.5-14.5) Platelet Count 01745^3/UL (140-415) Mean Platelet Volume 9.1fl (7.4-10.4) Neutrophils % 62.5% (39.0-77.0) Lymphocytes % 24.7% (15.0-51.0) Monocytes % 10.0% (0.0-11.0) Eosinophils % 2.2% (0.0-7.0) Basophils % 0.3% (0.0-2.0) Nucleated Red Blood Cells % 0.0/100WBC (0.0-0.0) Neutrophils # 3.710^3/ul (1.6-7.5) Lymphocytes # 1.510^3/ul (0.8-2.9) Monocytes # 0.610^3/ul (0.3-0.9) Eosinophils # 0.110^3/ul (0.0-0.5) Basophils # 0.010^3/ul (0.0-0.1) Nucleated Red Blood Cells # 0.010^3/ul (0.0-0.0) Sodium Level 138mmol/L (135-144) Potassium Level 4.0mmol/L (3.5-5.1) Chloride Level 105mmol/L (97-110) Carbon Dioxide Level 26mmol/L (21-31) Anion Gap 11 (8-16) Blood Urea Nitrogen 9mg/dl (7-20) Creatinine 0.55mg/dl (0.61-1.24) Glucose Level 138mg/dl (70-220) Calcium Level 8.5mg/dl (8.4-10.2) Magnesium Level 1.8mg/dl (1.7-2.5) MIKE MONROE MD Sep 25, 2017 11:41
== END 2017-09-25 14:24 | disposition home or self-care (01) | DRG 460 ==
LOC: REC 11:30 → MS1 19:50
PROVIDERS: ADMIT Specialist; ATTEND Specialist
PROC: 0ST20ZZ Resection of Lumbar Vertebral Disc, Open Approach (ICD-10-PCS; 2017-09-22)
PROC: 4A11X4G Monitoring of Peripheral Nervous Electrical Activity, Intraoperative, External Approach (ICD-10-PCS; 2017-09-22)
PROC: 079T3ZX Drainage of Bone Marrow, Percutaneous Approach, Diagnostic (ICD-10-PCS; 2017-09-22)
PROC: 0SG00AJ Fusion of Lumbar Vertebral Joint with Interbody Fusion Device, Posterior Approach, Anterior Column, Open Approach (ICD-10-PCS; principal; 2017-09-22 14:00)
DX: M48.061 Spinal stenosis, lumbar region without neurogenic claudication (principal); M41.86 Other forms of scoliosis, lumbar region; I10 Essential (primary) hypertension; E11.9 Type 2 diabetes mellitus without complications; E78.5 Hyperlipidemia, unspecified; D50.9 Iron deficiency anemia, unspecified; M51.16 Intervertebral disc disorders with radiculopathy, lumbar region; Z87.442 Personal history of urinary calculi; Z86.19 Personal history of other infectious and parasitic diseases
CPT/HCPCS: 72110; 80048; 82728; 82962; 83540; 83735; 84100; 85025; 86850; 86900; 86901; 86999; 87086; 97116; 97163; 97530; C1713; J0690; J1100; J1170; J1644; J1815; J1885; J2270; J2405; J2916; J3010; J3370; J3475; J3480; J7030